=== PATIENT | female | born 1930 | race Caucasian/White ===

== ENCOUNTER 2017-07-14 12:23 | Emergency (ER) | payer OTHER ==
[2017-07-14 12:28] VITALS: RESP 16
--- NOTE | 2017-07-14 13:31 | EDPHY ---
HPI/HX/ROS/PE/MDM Narrative: CHIEF COMPLAINT: Left-sided pain secondary to a fall HPI: The patient is an 86 y/o female who complains of left-sided pain secondary to a mechanical fall this morning. Around 02:00, 12 hours ago, the patient tripped and fell on hardwood floor. She landed on her left side, primarily on her left arm. Her pain is worst in her left hip and wrist. She notes she also hit her head, but denies loss of consciousness. She was ambulatory after the fall and went back to bed. Around 10:00, 4 hours ago, her daughter called and discovered the patient fell earlier that morning. Denies head pain, neck pain, numbness, fever, chest pain, or other pertinent symptoms. Portions of this note were transcribed by an ED scribe. I personally performed the history, physical exam, and medical decision making; and confirm the accuracy of the information in the transcribed note. REVIEW OF SYSTEMS: Aside from elements discussed in the HPI, a comprehensive 10-point review of systems was reviewed and is negative. PMH: Atrial fibrillation Hypertension Cholecystectomy Gastrectomy SOCIAL HISTORY: Daughter at bedside Nonsmoker Lives in [place] PHYSICAL EXAM: General:Patient is alert, in no acute distress. ENT:Eyes are normal to inspection. ENT inspection normal. Neck: Bilateral varicosity to veins on neck. Full range of motion. Respiratory:No respiratory distress. Breath sounds normal bilaterally. Cardiovascular: Regular rate and rhythm. Strong peripheral pulses. Normal cap refill. Abdomen:The abdomen is nontender to palpation. There are no peritoneal signs. There are normal bowel sounds. Back: Normal to inspection. No tenderness to palpation. Skin: Normal color. No rash. Warm and dry. Extremities: Left wrist diffuse ecchymosis and swelling. Contusion to left buttock. No pain with axial loading of left hip. Full range of motion. Neuro: Oriented x3. Normal motor function. Normal sensory function. ED Course: The patient is an 86 y/o female who presents with multiple traumas secondary to a mechanical fall 12 hours ago. On exam, her left wrist has diffuse ecchymosis and swelling. She also has a contusion to her left buttock, but there is no pain with axial loading of her left hip. She notes she did hit her head in the fall, but on exam there are no traumatic findings. She also denies head or neck pain. Plan on left hip and forearm x-rays to rule out fractures. Patient denies CT scan at this time. Reassessed patient and discussed imaging findings. She has a left distal radius fracture, but her left hip is negative for fractures. She will be discharged home with a plan for an orthopedic follow-up. Return precautions provided; patient is comfortable with this plan. - Data Points Imaging Results: Imaging Impressions Hip X-Ray 07/14/17 12:29 Impression: No acute abnormality seen about the pelvis with attention left hip. Humerus X-Ray 07/14/17 12:29 Impression: 1. No acute osseous abnormality seen left humerus. Wrist X-Ray 07/14/17 13:21 Impression: 1. Possible tiny nondisplaced chip fracture distal tip of the ulnar styloid. 2. Marked degenerative changes with erosion first carpometacarpal joint. Imaging: Discussed imaging studies w/ outbound call center representative Radiologist, I viewed and interpreted images myself General Time Seen by Provider: 07/14/17 12:52 Initial Vital Signs: Initial Vital Signs Temperature (C) 36.4 C 07/14/17 12:25 Heart Rate 96 07/14/17 12:25 Respiratory Rate 16 07/14/17 12:25 Blood Pressure 171/94 H 07/14/17 12:25 O2 Sat (%) 96 07/14/17 12:25 O2 Delivery Mode Room Air Allergies/Adverse Reactions: lisinopril Allergy (Verified 03/02/11 11:53) nitrofurantoin Allergy (Verified 03/02/11 11:53) nitroglycerin [Nitroglycerin] Allergy (Verified 03/02/11 11:53) spironolactone Allergy (Verified 03/02/11 11:53) Sulfa (Sulfonamide Antibiotics) Allergy (Verified 03/02/11 11:53) MACROCRYSTALS Allergy (Uncoded 03/02/11 11:53) Home Medications: Medication Instructions Recorded Acetaminophen [Tylenol ES 500 mg 500 mg PO DAILY PRN 09/28/14 (*)] Furosemide [Lasix 20 MG (*)] 20 mg PO DAILY PRN 07/30/16 Losartan Potassium [Cozaar 50 mg 50 mg PO BID 07/30/16 (*)] Metoprolol Tartrate [Lopressor 50 50 mg PO BID 07/30/16 mg (*)] Amoxicillin 500 mg PO BID #14 capsule 07/31/16 Departure - Departure Disposition: Home, Routine, Self-Care Clinical Impression: Distal radius fracture, left Qualifiers: Encounter type: initial encounter Fracture type: closed Fracture morphology: unspecified fracture morphology Qualified Code(s): S52.502A - Unspecified fracture of the lower end of left radius, initial encounter for closed fracture Contusion Qualifiers: Encounter type: initial encounter Contusion area: hip Laterality: left Qualified Code(s): S70.02XA - Contusion of left hip, initial encounter Condition: Good Instructions: Wrist Fracture in Adults (ED), Contusion in Adults (ED) Additional Instructions: Rest, ice, elevation. Follow up with an orthopedic surgeon within one week. You have bee referred to Dr. Aydin Arechiga, orthopedic surgeon. Return to the emergency department for worsening pain, swelling, numbness, weakness or other concerns. Wear splint at all times until reevaluation. Referrals: TOM DENISE [Other] - As per Instructions Aydin Arechiga MD [Medical Doctor] - As per Instructions Report Scribed for: Terrance Castro Report Scribed by: Leyda Sotomayor Date of Report: 07/14/17 Time of Report: 13:31
[2017-07-14 14:29] VITALS: BP 122/76; PULSE 84; TEMP 98.1; O2SAT 99
== END 2017-07-14 14:29 | disposition home or self-care (01) ==
DX: S52.502A Unspecified fracture of the lower end of left radius, initial encounter for closed fracture (principal); S70.02XA Contusion of left hip, initial encounter; I10 Essential (primary) hypertension; W01.0XXA Fall on same level from slipping, tripping and stumbling without subsequent striking against object, initial encounter
CPT/HCPCS: 73060; 73110; 73502; 99284; L3908